=== PATIENT | female | born 1990 | race African-American/Black ===

== ENCOUNTER → 2016-03-10 | Outpatient (CLI) | payer OTHER ==
--- NOTE | 2016-03-10 13:58 | MAMMOGRAPHY REPORT ---
ULTRASOUND OF RIGHT BREAST: 03/10/2016 CLINICAL HISTORY: The patient reports areas of right breast pain and possible lumps for approximatel y 2 months. COMPARISON: No prior exams were available for comparison. TECHNIQUE: Real-time targeted ultrasound of the right breast was performed. FINDINGS: Real-time, high resolution targeted ultrasound was performed of the areas of pain and possible lump pointed out by the patient, in the right breast at approximately 9:00, 5 cm from the nipple, as well as the right breast at 7:00, approximately 4 cm from the nipple. Sonographically normal tissue is seen in these regions, without evidence of a mass or other suspicious sonographic abnormality. No c yst is seen. IMPRESSION: ACR BI-RADS CATEGORY 1: NEGATIVE No sonographic abnormality at the sites of right breast pain/lumps. There is no sonographic evidenc e of malignancy. Recommend clinical follow-up. The patient was verbally notified of the results. Mari Pope M.D. ah/:03/10/2016 12:08:13 Regional Service Manager: Lenore KAUR(Zeynep)(M), [facility] letter sent: Normal 1/2 BI-RADS Code: ACR BI-RADS Category 1: Negative
== END | disposition home or self-care (01) ==
LOC: C.MAMM 11:30
PROVIDERS: ATTEND Obstetrics & Gynecology
DX: N64.4 Mastodynia (principal)